=== PATIENT | female | born 1980 | race Caucasian/White ===

== ENCOUNTER 2021-01-18 02:18 | Emergency (ER) | payer OTHER ==
[~2021-01-18] VITALS: Ht 160 cm; Wt 89.8 kg
[2021-01-18] MEDS ORDERED: METOCLOPRAMIDE HCL 10 MG/2 ML VIAL. IVP ONE (02:30)
[2021-01-18] MEDS ORDERED: KETOROLAC 15 MG/ML VIAL. IVP ONE (02:30)
[2021-01-18] MEDS ORDERED: MORPHINE SULFATE 4 MG/ML DISP.SYRIN. IV ONE (02:30)
[2021-01-18] MEDS ORDERED: IV NORMAL SALINE 1,000ML 1,000 ML IV ONE (02:30)
--- NOTE | 2021-01-18 02:34 | PHYS DOC ---
Past History Past Medical History: No Pertinent History Past Surgical History: No Surgical History Smoking: Cigarettes, Greater than 1 pack/day Alcohol Use: None Drug Use: Opiates General Adult EDM: Chief Complaint: FLANK PAIN HPI: HPI: 40-year-old female presents via EMS with report of sudden left-sided flank pain since last night. Reports pain has waxed and waned in intensity. Patient reports worse just prior to calling EMS. Reports associated nausea and vomiting. Denies . Reports last menstrual period ended 3 days ago. Patient denies history of known kidney stones. Patient reports hematuria noted upon providing urine sample to emergency department. EMS reports giving 50mcg of Fentanyl in route with limited effect. Review of Systems: Review of Systems: Constitutional: Denies fever or chills; reports malaise Eyes: Denies redness or eye pain HENT: Denies nasal congestion or sore throat Respiratory: Denies cough or shortness of breath Cardiovascular: Denies chest pain or palpitations GI: Reports abdominal pain, nausea, and vomiting : Reports hematuria Musculoskeletal: Reports left flank pain; denies joint pain Integument: Denies rash or skin lesions Neurologic: Denies headache, focal weakness or sensory changes Complete systems were reviewed and found to be within normal limits, except as documented in this note. Current Medications: Current Meds: Current Medications Medications (Trade) Dose Ordered Sig/[facility] Start Time Stop Time Status Last Admin Dose Admin Ketorolac Tromethamine (Toradol 15mg Vial) 15 mg 1X ONCE 01/18/21 02:30 01/18/21 02:31 UNV Metoclopramide HCl (Reglan Vial) 10 mg 1X ONCE 01/18/21 02:30 01/18/21 02:31 UNV Morphine Sulfate (Morphine 4mg Syringe) 4 mg 1X ONCE 01/18/21 02:30 01/18/21 02:31 UNV Sodium Chloride 1,000 ml @ 1,000 mls/hr 1X ONCE 01/18/21 02:30 01/18/21 03:29 UNV Physical Exam: PE: Constitutional: Well developed, well nourished, tearful and appears uncomfortable, non-toxic appearance HENT: Normocephalic, atraumatic Eyes: Conjunctiva normal, no discharge Neck: Normal range of motion, supple Lungs & Thorax: No respiratory distress, equal chest rise and fall Abdomen: Soft, left lower quadrant tenderness, voluntary guarding Skin: Warm, dry, no erythema, no rash Back: No tenderness, left CVA tenderness Extremities: No tenderness, ROM intact, no edema Neurologic: Alert and oriented X 3, no focal deficits noted Psychologic: Affect normal, judgment normal EKG: EKG: [] Radiology/Procedures: Radiology/Procedures: PROCEDURE: CT ABDOMEN PELVIS WO CONTRAST CT abdomen and pelvis without contrast PQRS statement: CT scans at this facility use dose reduction including either automated exposure control, iterative reconstructions, and /or weight based radiation dosing via mA and kV modification when appropriate to reduce radiation dose to as low as reasonably achievable. HISTORY: Left flank pain. Hematuria. Abdomen findings: Lung bases unremarkable. L5-S1 posterior disc height loss and disc bulge. Liver, gallbladder, spleen, adrenals, pancreas and right kidney are unremarkable. Tiny calculi left renal lower pole measuring 1 mm. There is mild left perinephric edema and hydronephrosis renal pelvis diameter is 1.5 cm mild dilation and edema of the ureter leading up to a 3 mm distal ureteral obstructing calculus just above the bladder. Small transverse duodenal diverticulum. Appendix is negative. Scattered colonic diverticulosis. No bowel obstruction or inflammation. No abdominal fluid. Pelvis findings: No bladder calculi. Pelvic phleboliths. Fallopian tubal contraceptive devices. Ovaries, rectum and bones are unremarkable. IMPRESSION: 1. Mild left renal hydronephrosis and perinephric edema associated with a 3 mm distal ureteral obstructing calculus. 2. Left nephrolithiasis. 3. Appendix is negative. Electronically signed by: Theodore Becker MD (01/18/2021 3:26 AM) [facility] Heart Score: C/O Chest Pain: N/A Course & Med Decision Making: Course & Med Decision Making Pertinent Labs and Imaging studies reviewed. (See chart for details) Patient presents with HPI and physical exam concerning for obstructing ureteral calculi. Pain/nausea addressed. IV fluid hydration given. Labs obtained and posted to chart. UA without signs of infection but noted gross hematuria. CT abdomen/pelvis with findings consistent for stone to UVJ measuring 3mm. Flomax provided. Patient stable for discharge with outpatient follow-up with PCP. Discussed findings and plan with patient, who acknowledges understanding and agreement. Young Disclaimer: Young Disclaimer: This electronic medical record was generated, in whole or in part, using a voice recognition dictation system. Departure Departure: Impression: Primary Impression: Kidney stone on left side Disposition: HOME / SELF CARE / HOMELESS Condition: STABLE Patient Instructions: Diet for Kidney Stones, Kidney Stones, [id number] Additional Instructions: Increase fluid hydration. Take [id number] ibuprofen as needed for pain in addition to prescribed medication. Scripts Ondansetron (ONDANSETRON ODT) 4 Mg Tab.rapdis 1 TAB PO PRN Q6-8HRS PRN for NAUSEA, #16 TAB Prov: KIERRA SUAREZ DO 01/18/21 Tamsulosin Hcl (FLOMAX) 0.4 Mg Cap.er.24h 1 CAP PO DAILY for Kidney stone, #7 CAP Prov: KIERRA SUAREZ DO 01/18/21 Hydrocodone/Acetaminophen (Hydrocodone-Acetamin 5-325 mg) 1 Each Tablet 0.5-1 EACH PO Q6HRS PRN for PAIN, #10 TAB Prov: KIERRA SUAREZ DO 01/18/21 KIERRA SUAREZ DO Jan 18, 2021 02:34
[2021-01-18 02:50] LABS: CALCIUM 8.7 mg/dL (8.5-10.1); CREATININE 0.8 mg/dL (0.6-1.0); GFR 78.7; POTASSIUM 3.8 mmol/L (3.5-5.1)
[2021-01-18 02:51] LABS: BACTERIA,URINE FEW /HPF (0-FEW); CLARITY,URINE CLOUDY; COLOR,URINE RED; RBC,URINE TNTC /HPF (0-2); SQUAMOUS EPITHELIAL CELL,UR MOD /LPF
[2021-01-18 02:55] LABS: ALBUMIN 3.5 g/dL (3.4-5.0); ALBUMIN/GLOBULIN RATIO 0.9 (1.0-1.7); TOTAL BILIRUBIN 0.3 mg/dL (0.2-1.0); TOTAL PROTEIN 7.2 g/dL (6.4-8.2)
[2021-01-18 02:59] LABS: U PREG PATIENT NEGATIVE (NEG)
[2021-01-18 03:04] LABS: BASO # 0.1 x10^3/uL (0.0-0.2); BASO % 1 % (0-3); EOS # 0.3 x10^3/uL (0.0-0.7); EOS % 3 % (0-3); HEMATOCRIT 35.8 % (36.0-47.0); LYMPH # 3.4 x10^3/uL (1.0-4.8); LYMPH % 35 % (24-48); MEAN CORPUSCULAR HEMOGLOBIN 29 pg (25-35); MEAN CORPUSCULAR HGB CONC 34 g/dL (31-37); MEAN CORPUSCULAR VOLUME 85 fL (79-100); MONO # 0.6 x10^3/uL (0.0-1.1); MONO % 6 % (0-9); NEUT # 5.3 x10^3uL (1.8-7.7); NEUT % 55 % (31-73); PLATELET COUNT 412 x10^3/uL (140-400); WHITE BLOOD COUNT 9.7 x10^3/uL (4.0-11.0)
--- NOTE | 2021-01-18 03:28 | RAD ---
CT abdomen and pelvis without contrast PQRS statement: CT scans at this facility use dose reduction including either automated exposure cont rol, iterative reconstructions, and /or weight based radiation dosing via mA and kV modification when appropriate to reduce radiation dose to as low as reasonably achievable. HISTORY: Left flank pain. Hematuria. Abdomen findings: Lung bases unremarkable. L5-S1 posterior disc height loss and disc bulge. Liver, ga llbladder, spleen, adrenals, pancreas and right kidney are unremarkable. Tiny calculi left renal lowe r pole measuring 1 mm. There is mild left perinephric edema and hydronephrosis renal pelvis diameter is 1.5 cm mild dilation and edema of the ureter leading up to a 3 mm distal ureteral obstructing calc ulus just above the bladder. Small transverse duodenal diverticulum. Appendix is negative. Scattered colonic diverticulosis. No bowel obstruction or inflammation. No abdominal fluid. Pelvis findings: No bladder calculi. Pelvic phleboliths. Fallopian tubal contraceptive devices. Ovari es, rectum and bones are unremarkable. IMPRESSION: 1. Mild left renal hydronephrosis and perinephric edema associated with a 3 mm distal ureteral obstru cting calculus. 2. Left nephrolithiasis. 3. Appendix is negative. Electronically signed by: Theodore Becker MD (01/18/2021 3:26 AM) [facility]
[2021-01-18] MEDS ORDERED: TAMS0.4C97 PO (03:43)
[2021-01-18] MEDS ORDERED: ONDA4TAB12 PO (03:43)
[2021-01-18] MEDS ORDERED: HYDR-2759 PO (03:43)
[2021-01-18] MEDS ORDERED: TAMSULOSIN 0.4 MG CAP.ER.24H. PO ONE (03:45)
[2021-01-18 04:21] VITALS: BP 141/71
== END 2021-01-18 04:28 | disposition home or self-care (01) ==
LOC: ER 02:18
DX: N13.2 Hydronephrosis with renal and ureteral calculous obstruction (principal); R11.2 Nausea with vomiting, unspecified; F17.210 Nicotine dependence, cigarettes, uncomplicated
CPT/HCPCS: 36415; 74176; 80053; 81001; 81025; 83690; 83735; 85025; 96361; 96374; 96375; 99284; J1885; J2270; J2765; J7030

== ENCOUNTER 2021-01-19 16:15 | Emergency (ER) | payer OTHER ==
[~2021-01-19] VITALS: Ht 160 cm; Wt 96.2 kg
[~2021-01-19 16:15] MED LIST: HYDR-2759 PO; ONDA4TAB12 PO; TAMS0.4C97 PO
[2021-01-19] MEDS ORDERED: MORPHINE SULFATE 4 MG/ML DISP.SYRIN. IV ONE (16:45)
[2021-01-19] MEDS ORDERED: ONDANSETRON PF 4 MG/2 ML VIAL. IVP ONE (16:45)
[2021-01-19] MEDS ORDERED: IV NORMAL SALINE 1,000ML 1,000 ML IV ONE (16:45)
[2021-01-19 17:06] LABS: BASO % 0 % (0-3); EOS # 0.2 x10^3/uL (0.0-0.7); EOS % 2 % (0-3); HEMATOCRIT 37.1 % (36.0-47.0); HEMOGLOBIN 12.4 g/dL (12.0-15.5); LYMPH # 2.1 x10^3/uL (1.0-4.8); LYMPH % 29 % (24-48); MEAN CORPUSCULAR HEMOGLOBIN 29 pg (25-35); MEAN CORPUSCULAR HGB CONC 33 g/dL (31-37); MEAN CORPUSCULAR VOLUME 86 fL (79-100); MONO # 0.3 x10^3/uL (0.0-1.1); MONO % 4 % (0-9); NEUT # 4.8 x10^3uL (1.8-7.7); NEUT % 65 % (31-73); PLATELET COUNT 376 x10^3/uL (140-400); RED BLOOD COUNT 4.31 x10^6/uL (3.50-5.40); RED CELL DISTRIBUTION WIDTH 14.4 % (11.5-14.5); WHITE BLOOD COUNT 7.5 x10^3/uL (4.0-11.0)
[2021-01-19 17:10] LABS: CALCIUM 8.2 mg/dL (8.5-10.1); CREATININE 0.6 mg/dL (0.6-1.0); GFR 109.6; POTASSIUM 3.9 mmol/L (3.5-5.1)
--- NOTE | 2021-01-19 17:10 | RAD ---
CT abdomen pelvis without contrast dated 01/19/2021. No comparison available. Clinical data indication: Abdominal pain. TECHNIQUE: Contiguous axial imaging the abdomen pelvis performed without the administration of IV or oral contra st. One or more of the following individualized dose reduction techniques were utilized for this examinat ion: 1. Automated exposure control 2. Adjustment of the mA and/or kV according to patient size 3. Use of iterative reconstruction technique. FINDINGS: Limited images of lung bases are clear. Heart size within normal limits. No pleural or pericardial ef fusion. Solid abdominal viscera not well evaluated in the absence of contrast material. No apparent attenuati on abnormality of the liver or spleen. Pancreas, adrenal glands, gallbladder unremarkable. There is a 3 mm calcific stone at the left UVJ with mild proximal dilation of the left ureter and lef t pelvicalyceal system. Mild inflammatory stranding in the periureteral fat. There is a punctate calc ific density at the lower pole left kidney. No calcific stone on the right. No right-sided hydronephr osis. Unopacified GI tract normal in caliber and contour. No bowel wall thickening. No inflammatory strandi ng in the mesentery. No ascites or lymphadenopathy. Abdominal aorta normal in caliber. Images of pelvis a nondistended urinary bladder. Uterus and adnexa are unremarkable. No free fluid or pelvic lymphadenopathy. Bone windows show no acute findings. IMPRESSION: 1. There is a 3 mm calcific stone at the left UVJ with mild obstructive uropathy. 2. Left-sided nephrolithiasis 3. Otherwise no acute findings. Electronically signed by: Zbigniew Vivas MD (01/19/2021 5:08 PM) [facility]
[2021-01-19 17:18] LABS: ALBUMIN 3.1 g/dL (3.4-5.0); ALBUMIN/GLOBULIN RATIO 0.8 (1.0-1.7); TOTAL BILIRUBIN 0.4 mg/dL (0.2-1.0); TOTAL PROTEIN 6.8 g/dL (6.4-8.2)
--- NOTE | 2021-01-19 17:31 | PHYS DOC ---
Past History Past Medical History: No Pertinent History Additional Past Medical Histor: PRESCRIPTION MEDICATION ABUSE (REINIER DRISCOLL APRN) Past Surgical History: Other Additional Past Surgical Histo: RIGHT ANKLE (REINIER DRISCOLL APRN) Smoking: Cigarettes, Greater than 1 pack/day Alcohol Use: None Drug Use: Opiates (REINIER DRISCOLL APRN) General Adult EDM: Chief Complaint: FLANK PAIN HPI: HPI: Patient is a 40-year-old female who presents with left lower abdominal pain and left flank pain. Patient states that she seen a few days ago and told that she had a kidney stone. Patient is currently taking Suboxone so she was not taking any narcotics that were prescribed. Patient was here for pain control. Patient is also taking Flomax. Denies vomiting. Denies dysuria. Patient has history of substance abuse. (REINIER DRISCOLL APRN) Review of Systems: Review of Systems: Constitutional: Denies fever or chills Eyes: Denies change in visual acuity HENT: Denies nasal congestion or sore throat Respiratory: Denies cough or shortness of breath Cardiovascular: Denies chest pain or edema GI: Reports left lower abdominal pain, nausea. denies vomiting, bloody stools or diarrhea : Denies dysuria Musculoskeletal: Denies back pain or joint pain Integument: Denies rash Neurologic: Denies headache, focal weakness or sensory changes Endocrine: Denies polyuria or polydipsia Lymphatic: Denies swollen glands Psychiatric: Denies depression or anxiety (REINIER DRISCOLL APRN) Current Medications: Current Meds: Current Medications Medications (Trade) Dose Ordered Sig/[facility] Start Time Stop Time Status Last Admin Dose Admin Morphine Sulfate (Morphine 4mg Syringe) 4 mg 1X ONCE 01/19/21 16:45 01/19/21 16:46 DC 01/19/21 16:54 4 MG Ondansetron HCl (Zofran) 4 mg 1X ONCE 01/19/21 16:45 01/19/21 16:46 DC 01/19/21 16:53 4 MG Sodium Chloride 1,000 ml @ 1,000 mls/hr 1X ONCE 01/19/21 16:45 01/19/21 17:44 01/19/21 16:54 1,000 MLS/HR (REINIER DRISCOLL APRN) Allergies: Allergies: Allergies Coded Allergies Type Severity Reaction Last Updated Verified No Known Drug Allergies 01/18/21 No (REINIER DRISCOLL SDE) Physical Exam: PE: Constitutional: Well developed, well nourished, no acute distress, non-toxic appearance. [] HENT: Normocephalic, atraumatic, bilateral external ears normal, oropharynx moist, no oral exudates, nose normal. [] Eyes: PERRLA, EOMI, conjunctiva normal, no discharge. [] Neck: Normal range of motion, no tenderness, supple, no stridor. [] Cardiovascular:Heart rate regular rhythm, no murmur [] Lungs & Thorax: Bilateral breath sounds clear to auscultation [] Abdomen: Bowel sounds normal, soft, left lower tenderness Skin: Warm, dry, no erythema, no rash. [] Back: No tenderness, no CVA tenderness. [] Extremities: No tenderness, no cyanosis, no clubbing, ROM intact, no edema. [] Neurologic: Alert and oriented X 3, normal motor function, normal sensory function, no focal deficits noted. [] Psychologic: Affect normal, judgement normal, mood normal. [] (REINIER DRISCOLL SDE) Current Patient Data: Labs: Laboratory Tests Test 01/19/21 16:35 White Blood Count 7.5 x10^3/uL (4.0-11.0) Red Blood Count 4.31 x10^6/uL (3.50-5.40) Hemoglobin 12.4 g/dL (12.0-15.5) Hematocrit 37.1 % (36.0-47.0) Mean Corpuscular Volume 86 fL (79-100) Mean Corpuscular Hemoglobin 29 pg (25-35) Mean Corpuscular Hemoglobin Concent 33 g/dL (31-37) Red Cell Distribution Width 14.4 % (11.5-14.5) Platelet Count 376 x10^3/uL (140-400) Neutrophils (%) (Auto) 65 % (31-73) Lymphocytes (%) (Auto) 29 % (24-48) Monocytes (%) (Auto) 4 % (0-9) Eosinophils (%) (Auto) 2 % (0-3) Basophils (%) (Auto) 0 % (0-3) Neutrophils # (Auto) 4.8 x10^3uL (1.8-7.7) Lymphocytes # (Auto) 2.1 x10^3/uL (1.0-4.8) Monocytes # (Auto) 0.3 x10^3/uL (0.0-1.1) Eosinophils # (Auto) 0.2 x10^3/uL (0.0-0.7) Basophils # (Auto) 0.0 x10^3/uL (0.0-0.2) Sodium Level 139 mmol/L (136-145) Potassium Level 3.9 mmol/L (3.5-5.1) Chloride Level 101 mmol/L (98-107) Carbon Dioxide Level 31 mmol/L (21-32) Anion Gap 7 (6-14) Blood Urea Nitrogen 11 mg/dL (7-20) Creatinine 0.6 mg/dL (0.6-1.0) Estimated GFR (Cockcroft-Gault) 109.6 BUN/Creatinine Ratio 18 (6-20) Glucose Level 107 mg/dL (70-99) H Calcium Level 8.2 mg/dL (8.5-10.1) L Total Bilirubin 0.4 mg/dL (0.2-1.0) Aspartate Amino Transferase (AST) 18 U/L (15-37) Alanine Aminotransferase (ALT) 26 U/L (14-59) Alkaline Phosphatase 84 U/L (46-116) Total Protein 6.8 g/dL (6.4-8.2) Albumin 3.1 g/dL (3.4-5.0) L Albumin/Globulin Ratio 0.8 (1.0-1.7) L Vital Signs: Vital Signs Date Time Temp Pulse Resp B/P (MAP) Pulse Ox O2 Delivery O2 Flow Rate FiO2 01/19/21 16:54 Room Air 01/19/21 16:29 97.9 94 18 151/80 97 (REINIER DRISCOLL APRN) EKG: EKG: [] (REINIER DRISCOLL APRN) Radiology/Procedures: Radiology/Procedures: []CT abdomen pelvis without contrast dated 01/19/2021. No comparison available. Clinical data indication: Abdominal pain. TECHNIQUE: Contiguous axial imaging the abdomen pelvis performed without the administration of IV or oral contrast. One or more of the following individualized dose reduction techniques were utilized for this examination: 1. Automated exposure control 2. Adjustment of the mA and/or kV according to patient size 3. Use of iterative reconstruction technique. FINDINGS: Limited images of lung bases are clear. Heart size within normal limits. No pleural or pericardial effusion. Solid abdominal viscera not well evaluated in the absence of contrast material. No apparent attenuation abnormality of the liver or spleen. Pancreas, adrenal glands, gallbladder unremarkable. There is a 3 mm calcific stone at the left UVJ with mild proximal dilation of the left ureter and left pelvicalyceal system. Mild inflammatory stranding in the periureteral fat. There is a punctate calcific density at the lower pole left kidney. No calcific stone on the right. No right-sided hydronephrosis. Unopacified GI tract normal in caliber and contour. No bowel wall thickening. No inflammatory stranding in the mesentery. No ascites or lymphadenopathy. Abdominal aorta normal in caliber. Images of pelvis a nondistended urinary bladder. Uterus and adnexa are unremarkable. No free fluid or pelvic lymphadenopathy. Bone windows show no acute findings. IMPRESSION: 1. There is a 3 mm calcific stone at the left UVJ with mild obstructive uropathy. 2. Left-sided nephrolithiasis 3. Otherwise no acute findings. Electronically signed by: Zbigniew Vivas MD (01/19/2021 5:08 PM) [facility] (REINIER DRISCOLL APRN) Heart Score: C/O Chest Pain: No Risk Factors: Risk Factors: DM, Current or recent (<one month) smoker, HTN, HLP, family history of CAD, obesity. Risk Scores: Score 0 - 3: 2.5% MACE over next 6 weeks - Discharge Home Score 4 - 6: 20.3% MACE over next 6 weeks - Admit for Clinical Observation Score 7 - 10: 72.7% MACE over next 6 weeks - Early Invasive Strategies (REINIER DRISCOLL APRN) Course & Med Decision Making: Course & Med Decision Making Pertinent Labs and Imaging studies reviewed. (See chart for details) [] 40-year-old female presents with left lower abdominal pain and left flank pain. Patient was diagnosed with a kidney stone but has been unable to keep her pain under control. Patient currently takes Suboxone and cannot take her narcotics that she was prescribed. CT of abdomen pelvis shows 3 mm stone on the left. Patient given Zofran, Toradol. Discussed results with patient. Instructed patient to take ibuprofen and Tylenol at home and continue with her Suboxone. Patient also given a strainer. Patient should follow up with PCP. Patient is hemodynamically stable upon disposition. (REINIER DRISCOLL APRN) Young Disclaimer: Young Disclaimer: This electronic medical record was generated, in whole or in part, using a voice recognition dictation system. (REINIER DRISCOLL APRN) Attending Co-Sign The patient was seen and interviewed as well as examined at the bedside. The chart was reviewed. The case was discussed. Agree with the plan of care. (ROSE METCALF DO) Departure Departure: Impression: Primary Impression: Left nephrolithiasis Disposition: HOME / SELF CARE / HOMELESS Condition: STABLE Referrals: REID VIRGEN MD (PCP) Patient Instructions: Kidney Stones, [id number] Additional Instructions: You were seen in the emergency room for toby pain. CT was positive for kidney stone. Continue taking ibuprofen and Tylenol at home. We are sending you home with a strainer. Follow-up with your PCP for further management. EMERGENCY DEPARTMENT GENERAL DISCHARGE INSTRUCTIONS Thank you for coming to [facility] (ED) today and trusting us with you care. We trust that you had a positivie experience in our Emergency Department. If you wish to speak to the department management, you may call the director at [phone]. YOUR FOLLOW UP INSTRUCTIONS ARE FOLLOWS: 1. Do you have a private Doctor? If you do not have a private doctor, please ask for a resource list of physicians or clinics that may be able to assist you with follow up care. 2. The Emergency Physician has interpreted your x-rays. The X-Ray specialist will also review them. If there is a change in the findings, you will be notified in 48 hours when at all possible. 3. A lab test or culture has been done, your results will be reviewed and you will be notified if you need a change in treatment. ADDITIONAL INSTRUCTIONS AND INFORMATION: 1. Your care today has been supervised by a physician who is specially trained in emergency care. Many problems require more than one evaluation for a complete diagnosis and treatment. We recommend that you schedule your follow up appointment as recommended to ensure complete treatment of you illness or injury. If you are unable to obtain follow up care and continue to have a problem, or if your condition worsens, we recommend that you return to the ED. 2. We are not able to safely determine your condition over the phone nor are we able to give sound medical advice over the phone. For these safety reasons, if you call for medical advice we will ask you to come to the ED for further evaluation. 3. If you have any questions regarding these discharge instructions please call the ED at [phone]. SAFETY INFORMATION: In the interest of safety, wellness, and injury prevention; we encourage you to wear your sealbelt, if you smoke; quite smoking, and we encourage family to use a protective helmet for bicycling and other sporting events that present an increased risk for head injury. IF YOUR SYMPTOMS WORSEN OR NEW SYMPTOMS DEVELOP, OR YOU HAVE CONCERNS ABOUT YOUR CONDITION; OR IF YOUR CONDITION WORSENS WHILE YOU ARE WAITING FOR YOUR FOLLOW UP APPOINTMENT; EITHER CONTACT YOUR PRIMARY CARE DOCTOR, THE PHYSICIAN WHOSE NAME AND NUMBER YOU WERE GIVEN, OR RETURN TO THE ED IMMEDIATELY. REINIER DRISCOLL APRN Jan 19, 2021 17:31 ROSE METCALF DO Jan 22, 2021 10:16
[2021-01-19 17:40] VITALS: BP 134/75
[2021-01-19] MEDS ORDERED: KETOROLAC 15 MG/ML VIAL. IVP ONE (17:45)
[2021-01-19] MEDS ORDERED: TAMSULOSIN 0.4 MG CAP.ER.24H. PO ONE (17:45)
== END 2021-01-19 18:12 | disposition home or self-care (01) ==
LOC: ER 16:15
DX: N20.0 Calculus of kidney (principal); F17.210 Nicotine dependence, cigarettes, uncomplicated
CPT/HCPCS: 36415; 74176; 80053; 85025; 96361; 96374; 96375; 99284; J1885; J2270; J2405; J7030